=== PATIENT | male | born 1995 | race Caucasian/White ===

== ENCOUNTER 2016-08-17 16:49 | Emergency (ER) | payer BC ==
[2016-08-17 17:33] VITALS: BP 116/60
--- NOTE | 2016-08-17 18:40 | UC ---
FLU HPI - HPI Summary HPI Summary: 3d of body aches, chills, ST, cough, malaise, fatigue. Fever only first day. Did miss class yesterday due to symptoms. No flu shot. College student, epidemic flu on campus. - History of Current Complaint Chief Complaint: UCGeneralIllness Stated Complaint: COUGH Time Seen by Provider: 08/17/16 18:24 Hx Obtained From: Patient Onset/Duration: Gradual Onset, Lasting Days - 3 Severity Currently: Mild Severity Initially: Mild Associated Signs & Symptoms: Positive: Fever, Myalgia, Cough, Sore Throat, Nasal Congestion, Headache Related Hx: Possible Flu/Infectious Exposure - Risk Factors Influenza Risk Factors: Negative - Allergy/Home Medications Allergies/Adverse Reactions: Allergies Allergy/AdvReac Type Severity Reaction Status Date / Time No Known Allergies Allergy Verified 08/17/16 17:33 Home Medications: Home Medications Phenylephrine-Dm [Daytime Cold & Cough Chil] 1 uhmza PO DAILY 08/17/16 [History Confirmed 08/17/16] PMH/Surg Hx/FS Hx/Imm Hx Previously Healthy: Yes - Surgical History Surgical History: Yes Surgery Procedure, Year, and Place: R femur surgery - Family History Known Family History: Negative: Respiratory Disease, Seizure Disorder - Social History Occupation: Student Lives: Alone Alcohol Use: Weekly Substance Use Type: None Smoking Status (MU): Never Smoked Tobacco Review of Systems Constitutional: Fever, Chills, Fatigue Skin: Negative Eyes: Negative ENT: Sore Throat Respiratory: Cough Cardiovascular: Negative Gastrointestinal: Negative Genitourinary: Negative Motor: Negative Neurovascular: Negative Musculoskeletal: Arthralgia, Myalgia Neurological: Headache Psychological: Negative All Other Systems Reviewed And Are Negative: Yes Physical Exam Triage Information Reviewed: Yes Appearance: Well-Appearing, No Pain Distress, Well-Nourished Vital Signs: Initial Vital Signs Temp 100.4 F 08/17/16 17:29 Pulse 82 08/17/16 17:29 Resp 16 08/17/16 17:29 BP 116/60 08/17/16 17:29 Pulse Ox 100 08/17/16 17:29 Vital Signs Reviewed: Yes Eye Exam: Normal Eyes: Positive: Conjunctiva Clear ENT: Positive: Hearing grossly normal, Pharynx normal, Nasal congestion, TM dull , TM red - left side, very red and retracted. Negative: Tonsillar swelling, Tonsillar exudate, Trismus, Muffled/hoarse voice Respiratory Exam: Normal Respiratory: Positive: Lungs clear, Normal breath sounds, No respiratory distress, No accessory muscle use Cardiovascular Exam: Normal Musculoskeletal Exam: Normal Neurological Exam: Normal Psychological Exam: Normal Skin Exam: Normal Flu Course/Dx - Differential Dx/Diagnosis Differential Diagnosis/HQI/PQRI: Influenza, Upper Respiratory Infection Provider Diagnoses: influenza; left OM Discharge - Discharge Plan Condition: Stable Disposition: HOME Prescriptions: Azithromycin TAB* [Zithromax TAB (Z-VALE) 250 mg #6 tabs] 2 tab PO .TODAY, THEN 1 DAILY #1 vale Guaifenesin-Codeine [Cheratussin AC] 1 - 2 teasp PO Q6HR PRN #120 ml MDD 30ml PRN Reason: Cough Patient Education Materials: Influenza (ED), Otitis Media (ED) Forms: *School Release Referrals: No Primary Care Phys,NOPCP [Primary Care Provider] -
== END 2016-08-17 18:43 | disposition home or self-care (01) ==
LOC: UCCORT 16:49
DX: J11.1 Influenza due to unidentified influenza virus with other respiratory manifestations (principal); H66.92 Otitis media, unspecified, left ear
CPT/HCPCS: 99212; G0463